=== PATIENT | female | born 1990 | race Two or more races ===

== ENCOUNTER 2017-08-12 00:30 | Emergency (ER) | payer MEDICAID ==
[~2017-08-12] VITALS: Ht 152.4 cm; Wt 54.0 kg
[2017-08-12 01:08] VITALS: BP 104/70
[2017-08-12] MEDS ORDERED: DEBROX15 M1 BOTH EARS (01:27)
[2017-08-12 01:31] VITALS: BP 104/70
--- NOTE | 2017-08-12 05:06 | Emergency Room Report ---
History of Present Illness General Chief Complaint: Earache Source: Patient Present Illness HPI 26-year-old female presents ED complaining of left ear pain x4 days. Patient states she has history of cerumen impaction. Pain is 4/10, throbbing, nonradiating. Denies fevers chills. Denies cough. Denies sore throat. DeniesI sick contacts or recent travel. No other aggravating or leading factors. Denies any other associated symptoms Allergies: Coded Allergies: No Known Allergies (Unverified , 08/12/17) Patient History Past Medical History: none Past Surgical History: none Pertinent Family History: none Social History: Denies: smoking, alcohol use, drug use Last Menstrual Period: a month ago Now: No : 0 Immunizations: UTD Reviewed Nursing Documentation: PMH: Agreed, PSxH: Agreed Nursing Documentation-PMH Past Medical History: No Stated History Review of Systems All Other Systems: negative except mentioned in HPI Physical Exam Vital Signs Date Time Temp Pulse Resp B/P (MAP) Pulse Ox O2 Delivery O2 Flow Rate FiO2 08/12/17 00:48 97.9 75 18 104/70 98 Room Air Sp02 EP Interpretation: reviewed, normal General Appearance: no apparent distress, alert, GCS 15, non-toxic Head: normocephalic Eyes: bilateral eye normal inspection, bilateral eye PERRL ENT: normal pharynx, other - cerumen impaction bilateral ear canals. unable to visualize TM Neck: normal inspection Respiratory: normal inspection Cardiovascular #1: normal inspection Gastrointestinal: normal inspection Rectal: deferred Genitourinary: no CVA tenderness Musculoskeletal: normal inspection Neurologic: alert, oriented x3, responsive, motor strength/tone normal, sensory intact, speech normal Psychiatric: normal inspection Skin: normal inspection Lymphatic: normal inspection Medical Decision Making Diagnostic Impression: Primary Impression: Cerumen impaction Qualified Codes: H61.23 - Impacted cerumen, bilateral ER Course Hospital Course 26-year-old F presents to ED with pain L ear. no fever. Differential diagnoses include: TM perforation, otitis externa, otitis media Clinical course Patient placed on stretcher. After initial history, physical exam reveals a female in no acute distress. There is significant cerumen impaction in bilateral ears. Unable to visualize the TM I offered option for her ear irrigation here. Patient declines. States she will try the drops Diagnosis -cerumen impaction Stable and discharged to home with Rx debrox. Followup with PMD. Return to ED if symptoms recur or worsen Last Vital Signs Date Time Temp Pulse Resp B/P (MAP) Pulse Ox O2 Delivery O2 Flow Rate FiO2 08/12/17 01:31 97.9 75 18 104/70 98 Room Air Status: improved Disposition: HOME, SELF-CARE Condition: Stable Scripts Carbamide Peroxide (DEBROX) 15 Ml Drops 10 DROP BOTH EARS TWICE A DAY for 4 Days, ML 0 Refills Prov: FERNANDO FERRARI M.D. 08/12/17 Referrals: [facility],REFERRING (PCP) Patient Instructions: Cerumen Impaction FERNANDO FERRARI M.D. Aug 12, 2017 05:06
== END 2017-08-12 01:31 | disposition home or self-care (01) ==
LOC: EMR 01:25
DX: H61.23 Impacted cerumen, bilateral (principal)
CPT/HCPCS: 99283

== ENCOUNTER 2017-11-08 18:36 | Emergency (ER) | payer MEDICAID ==
[~2017-11-08] VITALS: Ht 152.4 cm; Wt 56.7 kg
[~2017-11-08 18:36] MED LIST: DEBROX15 M1 BOTH EARS
[2017-11-08 19:30] VITALS: BP 110/64
[2017-11-08] MEDS ORDERED: TYLENOL EXTRA500 MG ORAL (19:36)
--- NOTE | 2017-11-08 19:36 | Emergency Room Report ---
History of Present Illness General Chief Complaint: Sore Throat Source: Patient Present Illness HPI 26 yo female presents to ER complaining of cough and sore throat since yesterday. Patient requesting work note. 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 Reports took NyQuil last night, not taken other medication. Complains of subjective fever and chills Reports sore throat, reports able to eat and drink. Denies hearing loss. Denies nausea, vomiting, diarrhea, cough, abdominal pain, vision changes, neck pain, SIMPSON, dysuria, hematuria, rash. Allergies: Coded Allergies: No Known Allergies (Unverified , 08/12/17) Patient History Past Medical History: see triage record Last Menstrual Period: 10/14/17 Now: No : 0 Reviewed Nursing Documentation: PMH: Agreed; PSxH: Agreed Nursing Documentation-PMH Past Medical History: No Stated History Review of Systems All Other Systems: negative except mentioned in HPI Physical Exam Vital Signs Date Time Temp Pulse Resp B/P (MAP) Pulse Ox O2 Delivery O2 Flow Rate FiO2 11/08/17 18:54 99.2 116 20 110/64 97 Room Air 99.1 Sp02 EP Interpretation: reviewed, normal General Appearance: well appearing, no apparent distress, alert, GCS 15, non- toxic Head: normocephalic, atraumatic Eyes: bilateral eye normal inspection, bilateral eye PERRL ENT: hearing grossly normal, normal pharynx, no angioedema, normal voice, TMs + canals normal, uvula midline, moist mucus membranes, other - no phayrngeal erythema, no tonsillar exudates, no uvular deviation, excessive cerumen bilaterally Neck: full range of motion Respiratory: lungs clear, normal breath sounds, no rhonchi, no respiratory distress, no accessory muscle use, no wheezing, speaking full sentences Cardiovascular #1: regular rate, rhythm, no edema Gastrointestinal: non tender, soft, no mass, non-distended, no guarding, no rebound Genitourinary: no CVA tenderness Musculoskeletal: back normal, digits/nails normal, gait/station normal, normal range of motion, non-tender, no calf tenderness Neurologic: alert, oriented x3, responsive, motor strength/tone normal, sensory intact Psychiatric: mood/affect normal Skin: no rash Lymphatic: no adenopathy Medical Decision Making PA Attestation Dr. Lennon is my supervising Physician whom patient management has been discussed with. Diagnostic Impression: Primary Impression: Sore throat Additional Impressions: Cerumen impaction Influenza-like symptoms ER Course Pt presents to ED c/o sore throat and flu-like symptoms. DDX considered but are not limited to pharyngitis, laryngitis, URI, peritonsillar abscess, tonsillitis. Low suspicion for peritonsillar abscess, no neck stiffness, no hot potato voice , no stridor. Low suspicion for PE per Well's criteria, no hemoptysis, no calf swelling, no SOB, no recent travel or immobilization. VITAL SIGNS are WNL, patient is afebrile. Pulse elevated, will monitor. ORDERS: -Tylenol -Viscous Lidocaine ER COURSE: Patient declined medication in ER. Reports just wants work note. Provided with work note. Salt water gargles. Instructed on Tylenol, fluids, and bed rest. Take Tamiflu, will decrease duration of symptoms. ER precautions, new or worsening of symptoms, chest pain, SOB. Patient reports aware of excessive cerumen, declines need for Rx, states has medication at home. No pain with ear pulling. Patient complains of nausea. Patient declined offer for Zofran, reports wants work note and to be discharged home. Pulse still elevated. Return to ER for chest pain, SOB, vision changes, SIMPSON, abdominal pain. Followup with primary care provider. DISCHARGE: Rx provided for Tylenol for pain and fever symptoms At this time pt is stable for d/c to home. Patient is resting comfortably, in no acute distress, nontoxic appearing, talking without difficulty. Will provide with patient care instructions and any necessary prescriptions. Patient to take medication as instructed. Care plan and follow-up instructions provided. Patient questions asked and answered. Patient instructed to follow-up with primary care provider in 3 - 5 days. ER precautions given. Patient instructed to return to ER immediately for any new or worsening of symptoms. Last Vital Signs Date Time Temp Pulse Resp B/P (MAP) Pulse Ox O2 Delivery O2 Flow Rate FiO2 11/08/17 18:54 99.2 116 20 110/64 97 Room Air 99.1 Disposition: HOME, SELF-CARE Condition: Stable Scripts Acetaminophen* (TYLENOL EXTRA STRENGTH*) 500 Mg Tablet 500 MG ORAL Q8H PRN for Prn Headache/Temp > 101, #30 TAB 0 Refills Prov: Landry Valdez 11/08/17 Patient Instructions: Cerumen Impaction, Influenza, Adult, [id number], Sore Throat Additional Instructions: Followup with primary care provider in 3 -5 days for further treatment and plan. Take medications as directed. Take Tamiflu as instructed. Rest and fluids. Salt Water gargles for throat. Patient questions asked and answered. ER precautions given, patient instructed to return to ER immediately for any new or worsening of symptoms. Landry Valdez Nov 08, 2017 19:36
[2017-11-08] MEDS ORDERED: Lidocaine 2% Visc 15ml soln ORAL ONE (19:45)
[2017-11-08] MEDS ORDERED: Acetaminophen 500mg (ES) tab ORAL ONE (19:45)
[2017-11-08 20:00] VITALS: BP 110/64
== END 2017-11-08 20:00 | disposition home or self-care (01) ==
LOC: EMR 19:30
DX: J02.9 Acute pharyngitis, unspecified (principal); H61.23 Impacted cerumen, bilateral; J11.1 Influenza due to unidentified influenza virus with other respiratory manifestations
CPT/HCPCS: 99283

== ENCOUNTER 2018-10-04 00:17 | Emergency (ER) | payer MEDICAID ==
[~2018-10-04] VITALS: Ht 152.4 cm; Wt 56.7 kg
[~2018-10-04 00:17] MED LIST changes: +TYLENOL EXTRA500 MG ORAL
[2018-10-04] MEDS ORDERED: Ipratropium 0.02% Inh Soln 2.5ml UD HHN ONE (00:45)
[2018-10-04] MEDS ORDERED: Albuterol ud Inhalation HHN ONE (00:45)
[2018-10-04 01:03] VITALS: BP 105/67
--- NOTE | 2018-10-04 01:05 | NUR ---
ED Nurse Note: Patient presents to ED c/o cough 2 days, sorethroat for 4 days, nasal congestion for 4 days. Patient reports 6/10 pain. patient reports nausea. Patient AOx4, VSS, ambulatory with steady gait, no s/s of acute distress noted at this time. patient seen by TOSIND at bedside.
[2018-10-04] MEDS ORDERED: guaiFENesin w/Codeine 5ml Liq ud ORAL STA (01:51)
--- NOTE | 2018-10-04 01:52 | Emergency Room Report ---
History of Present Illness General Chief Complaint: Flu Like Symptoms Source: Patient Present Illness HPI Patient presents with 4 days of cough and sore throat. She has heard herself wheezing. She is used an inhaler in the past but denies a diagnosis of asthma. There is no nausea, vomiting or diarrhea. She is under menstruation at this time and does not believe she is . There is are no rashes. She did receive a flu vaccination denies fevers but has felt chilled. She tried no medication. Allergies: Coded Allergies: No Known Allergies (Unverified , 08/12/17) Patient History Past Medical History: see triage record Social History: Denies: smoking, alcohol use Social History Narrative Scribe Last Menstrual Period: Current on period Now: No Reviewed Nursing Documentation: PMH: Agreed; PSxH: Agreed Nursing Documentation-PMH Past Medical History: No Stated History Review of Systems All Other Systems: negative except mentioned in HPI Physical Exam Vital Signs Date Time Temp Pulse Resp B/P (MAP) Pulse Ox O2 Delivery O2 Flow Rate FiO2 10/04/18 00:22 98.2 69 19 105/67 96 Room Air 10/04/18 00:53 21 Sp02 EP Interpretation: reviewed, normal General Appearance: well appearing, no apparent distress, GCS 15 Head: normocephalic Eyes: bilateral eye normal inspection, bilateral eye PERRL, bilateral eye EOMI ENT: normal voice, moist mucus membranes, pharyngeal erythema, other - No exudates Neck: supple Respiratory: lungs clear, normal breath sounds, wheezing - Posttussive Cardiovascular #1: regular rate, rhythm Cardiovascular #2: 2+ radial (R) Gastrointestinal: normal inspection, normal bowel sounds, non tender, no mass, non-distended Genitourinary: no CVA tenderness Musculoskeletal: back normal, gait/station normal, normal range of motion Neurologic: alert, oriented x3, grossly normal Psychiatric: mood/affect normal Skin: normal inspection, warm/dry Medical Decision Making Diagnostic Impression: Primary Impression: Viral upper respiratory illness Additional Impression: Bronchospasm ER Course Patient presents with sore throat and cough with posttussive wheezing. Differential includes influenza, viral syndrome, bronchospasm, bronchitis amongst others. The exam is against Streptococcus. Antibiotics are not indicated at this time. I discussed with the patient about performing influenza swab she states that she would not take Tamiflu if it were positive. Breathing treatment is indicated. She does agree to taking prednisone. Improved after breathing treatment but still episodes of coughing. Guaifenesin with codeine administered. Patient stable for outpatient observation and treatment. Last Vital Signs Date Time Temp Pulse Resp B/P (MAP) Pulse Ox O2 Delivery O2 Flow Rate FiO2 10/04/18 02:11 98.2 69 18 105/67 100 Room Air 21 Status: improved Disposition: HOME, SELF-CARE Condition: Improved Scripts Prednisone* (PREDNISONE*) 20 Mg Tablet 40 MG ORAL DAILY, #6 TAB Prov: Bulmaro Peterson MD 10/04/18 Guaifenesin/Codeine Phos* (ROBITUSSIN AC*) 118 Ml Liquid 5 ML ORAL Q6H PRN for For Cough, #100 ML 0 Refills Prov: Bulmaro Peterson MD 10/04/18 Albuterol Sulfate* (ALBUTEROL SULFATE MDI*) 8.5 Gm Hfa.aer.ad 2 PUFF INH Q6H, #1 EA 0 Refills Prov: Bulmaro Peterson MD 10/04/18 Referrals: [facility]/,REFERRING (PCP) Bulmaro Peterson MD Oct 04, 2018 01:52
[2018-10-04] MEDS ORDERED: GUAIFENESIN-CO118 M1 ORAL (01:57)
[2018-10-04] MEDS ORDERED: ALBUTEROL SULF8.5 GM INH (01:57)
[2018-10-04] MEDS ORDERED: PREDNISONE20 MG ORAL (01:57)
[2018-10-04 02:11] VITALS: BP 105/67
--- NOTE | 2018-10-04 02:11 | NUR ---
ED Nurse Note: Patient cleared for discharge by ERMKiah. Patient AOx4, VSS, ambulatory with steady gait, no s/s of acute distress noted at this time. patient provided with discharge instructions and medication prescriptions. patient verbalized understanding. patient ID band removed. Patient instructed to follow up with PCP in 5 days. patient has friend to drive her home. patient took all personal belongings with her.
== END 2018-10-04 02:13 | disposition home or self-care (01) ==
LOC: EMR 00:39
DX: J06.9 Acute upper respiratory infection, unspecified (principal); B34.9 Viral infection, unspecified; J98.01 Acute bronchospasm
CPT/HCPCS: 94640; 94664; 99284; J7512

== ENCOUNTER 2018-11-25 22:52 | Emergency (ER) | payer MEDICAID ==
[~2018-11-25] VITALS: Ht 152.4 cm; Wt 56.7 kg
[~2018-11-25 22:52] MED LIST changes: +ALBUTEROL SULF8.5 GM INH; +GUAIFENESIN-CO118 M1 ORAL; +PREDNISONE20 MG ORAL
[2018-11-25] MEDS ORDERED: NKM (23:00)
[2018-11-25 23:10] VITALS: BP 125/85
--- NOTE | 2018-11-25 23:10 | NUR ---
ED Nurse Note: pt walked in c/o sorethroat x 1 wk, pt states she recently had cough, congestion and fever but denies fever at this time. pt aA&ox4, gcs=15, skin warm and dry, resp even and unlabored on RA, -n/v/d at this time, will cont monitor.
[2018-11-25] MEDS ORDERED: ZITHROMAX250 MG ORAL (23:15)
--- NOTE | 2018-11-25 23:16 | Emergency Room Report ---
History of Present Illness General Chief Complaint: Sore Throat Source: Patient Present Illness [facility] This is a 27-year-old female with no past medical history. She presents with chief complaint of sore throat. She also has on of fever for a week. Most of the pain is on the right side. She has URI for about a week now. Pain is worse with swallowing and drinking. No swelling. No nausea no vomiting. Pain is 8 out of 10. Allergies: Coded Allergies: No Known Allergies (Unverified , 08/12/17) Patient History Past Medical History: see triage record, old chart reviewed Past Surgical History: none Pertinent Family History: none Social History: Denies: smoking Last Menstrual Period: 11/01/2018 Now: No Immunizations: other Reviewed Nursing Documentation: PMH: Agreed; PSxH: Agreed Nursing Documentation-PMH Past Medical History: No Stated History Review of Systems Eye: Denies: eye pain, blurred vision ENT: Reports: throat pain; Denies: ear pain, nose congestion, throat swelling Respiratory: Denies: cough, shortness of breath Cardiovascular: Denies: chest pain, palpitations Gastrointestinal: Denies: abdominal pain, diarrhea, nausea, vomiting Musculoskeletal: Denies: back pain, joint pain Skin: Denies: rash Neurological: Denies: headache, numbness Endocrine: Denies: increased thirst, increased urine Hematologic/Lymphatic: Denies: easy bruising All Other Systems: negative except mentioned in HPI Physical Exam Vital Signs Date Time Temp Pulse Resp B/P (MAP) Pulse Ox O2 Delivery O2 Flow Rate FiO2 11/25/18 22:58 97.9 61 16 125/85 99 Room Air vitals normal Sp02 EP Interpretation: reviewed, normal General Appearance: well appearing, no apparent distress, alert Head: normocephalic, atraumatic Eyes: bilateral eye PERRL, bilateral eye EOMI ENT: hearing grossly normal, pharyngeal erythema Neck: full range of motion, supple, no meningismus Respiratory: chest non-tender, lungs clear, normal breath sounds Cardiovascular #1: regular rate, rhythm, no murmur Gastrointestinal: normal bowel sounds, non tender, no mass, no organomegaly, no bruit, non-distended Musculoskeletal: back normal, gait/station normal, normal range of motion Psychiatric: mood/affect normal Skin: warm/dry Medical Decision Making Diagnostic Impression: Primary Impression: Pharyngitis, acute Qualified Codes: J02.9 - Acute pharyngitis, unspecified ER Course Patient with acute pharyngitis. Most likely viral but symptoms been ongoing for over a week and with fever, we'll put on antibiotics. No evidence of any peritonsillar abscess or retropharyngeal abscess. No Evidence of Tod angina. We'll discharge home. Last Vital Signs Date Time Temp Pulse Resp B/P (MAP) Pulse Ox O2 Delivery O2 Flow Rate FiO2 11/25/18 23:10 97.9 61 16 125/85 99 Room Air Status: unchanged Disposition: HOME, SELF-CARE Condition: Stable Scripts Azithromycin* (ZITHROMAX*) 250 Mg Tablet 250 MG ORAL DAILY, #6 TAB 0 Refills Take two tables once daily for 1 day, then one tablet once daily for 4 days. Prov: Isacc Rivera MD 11/25/18 Patient Instructions: Sore Throat Additional Instructions: Follow-up with your doctor in 7 days. Increase fluids. Return if worse. Isacc Rivera MD Nov 25, 2018 23:16
[2018-11-25 23:31] VITALS: BP 125/85
--- NOTE | 2018-11-25 23:31 | NUR ---
ED Nurse Note: pt cleared to be d/c per ERMD, pt discharge and aftercare instruction provided w/ prescription, pt education done via discussion and handout, pt advised to follow up with pcp or return if changes in condition, pt verbalized understanding and agrees with plan, vss, ambulatory w/ steady gait, left w/ all belongings, ID band removed.
== END 2018-11-25 23:32 | disposition home or self-care (01) ==
LOC: EMR 23:15
DX: J02.9 Acute pharyngitis, unspecified (principal)
CPT/HCPCS: 99282

== ENCOUNTER 2019-12-22 04:09 | Emergency (ER) | payer MEDICAID ==
[~2019-12-22] VITALS: Ht 152.4 cm; Wt 52.2 kg
[~2019-12-22 04:09] MED LIST changes: +NKM; +ZITHROMAX250 MG ORAL
--- NOTE | 2019-12-22 04:26 | NUR ---
ED Nurse Note: pt presents to ED c/o palpitations after she consumed 2 THC edibles of unk dose and drank a small amount of alcohol at around 0000. pt states that she started feeling the palpitations 2 hours after eating the edible. this was her first time taking them, she denies vomiting but reports feeling nauseous. pt appears to be anxious, shaking and noted to have tachy HR of 140's
[2019-12-22 04:27] VITALS: BP 127/71
[2019-12-22] MEDS ORDERED: LORazepam Inj 2mg/ml 1ml IV ONE (04:30)
[2019-12-22 04:49] LABS: EOSINOPHILS % (AUTO) 1.1 % (0.0-3.0); HEMATOCRIT 37.3 % (37.0-47.0); HEMOGLOBIN 13.4 G/DL (12.0-16.0); LYMPHOCYTES % (AUTO) 28.2 % (20.0-45.0); MEAN CORPUSCULAR VOLUME 89 FL (80-99); MONOCYTES % (AUTO) 5.9 % (1.0-10.0); NEUTROPHILS % (AUTO) 63.9 % (45.0-75.0); PLATELET COUNT 237 K/UL (150-450); RED BLOOD COUNT 4.18 M/UL (4.20-5.40); RED CELL DISTRIBUTION WIDTH 10.7 % (11.6-14.8); WHITE BLOOD COUNT 7.4 K/UL (4.8-10.8)
[2019-12-22 04:50] LABS: APPEARANCE,URINE CLEAR; BILIRUBIN, URINE NEGATIVE (NEGATIVE); COLOR,URINE PALE YELLOW; GLUCOSE, URINE (UA) NEGATIVE (NEGATIVE); KETONES,URINE NEGATIVE (NEGATIVE); LEUKOCYTE ESTERASE ,URINE NEGATIVE (NEGATIVE); NITRITE,URINE NEGATIVE (NEGATIVE); PH,URINE 6 (4.5-8.0); PROTEIN,URINE NEGATIVE (NEGATIVE); UROBILINOGEN,URINE NORMAL MG/DL (0.0-1.0)
[2019-12-22 05:05] LABS: ALANINE AMINOTRANSFERASE 25 U/L (12-78); ALBUMIN 4.4 G/DL (3.4-5.0); ALBUMIN/GLOBULIN RATIO 1.2 (1.0-2.7); ALKALINE PHOSPHATASE 87 U/L (46-116); ASPARTATE AMINO TRANSFERASE 18 U/L (15-37); BILIRUBIN,TOTAL 0.6 MG/DL (0.2-1.0); BLOOD UREA NITROGEN 10 mg/dL (7-18); CALCIUM 8.6 MG/DL (8.5-10.1); CARBON DIOXIDE 25 MMOL/L (21-32); CREATININE 0.8 MG/DL (0.55-1.30)
--- NOTE | 2019-12-22 05:13 | NUR ---
HAND-OFF: Report given to ELEANOR Ambriz
--- NOTE | 2019-12-22 05:13 | Emergency Room Report ---
History of Present Illness General Chief Complaint: Substance Abuse Source: Patient Present Illness HPI 29-year-old female presents ED for evaluation. States that last night she used an edible and drank some alcohol. States she woke up with her heart racing. Feels anxious. Denies chest pain or shortness of breath. Does have some anxiety but does not take medication. Denies SI or HI. Denies abdominal pain nausea or vomiting. No other aggravating relieving factors. Denies any other associated symptoms Allergies: Coded Allergies: No Known Allergies (Unverified , 08/12/17) COVID-19 Screening Contact w/high risk pt: No Recent Travel to affected area: No Experienced COVID-19 symptoms?: No COVID-19 Testing performed FREIGHT LOADER: No Patient History Past Medical History: psych hx Past Surgical History: none Pertinent Family History: none Social History: Reports: drug use; Denies: smoking, alcohol use Now: No Immunizations: UTD Reviewed Nursing Documentation: PMH: Agreed; PSxH: Agreed Review of Systems All Other Systems: negative except mentioned in HPI Physical Exam Vital Signs Date Time Temp Pulse Resp B/P (MAP) Pulse Ox O2 Delivery O2 Flow Rate FiO2 12/22/19 04:13 97.9 145 22 127/71 (89) 96 Room Air Sp02 EP Interpretation: reviewed, normal General Appearance: no apparent distress, alert, GCS 15, non-toxic Head: normocephalic, atraumatic Eyes: bilateral eye normal inspection, bilateral eye PERRL ENT: hearing grossly normal, normal pharynx, no angioedema, normal voice Neck: full range of motion, supple/symm/no masses Respiratory: chest non-tender, lungs clear, normal breath sounds, speaking full sentences Cardiovascular #1: no edema, tachycardia Cardiovascular #2: 2+ carotid (R), 2+ carotid (L), 2+ radial (R), 2+ radial (L) , 2+ dorsalis pedis (R), 2+ dorsalis pedis (L) Gastrointestinal: normal bowel sounds, non tender, soft, non-distended, no guarding, no rebound Rectal: deferred Genitourinary: normal inspection, no CVA tenderness Musculoskeletal: back normal, normal range of motion, gait/station normal, non- tender Neurologic: alert, motor strength/tone normal, oriented x3, sensory intact, responsive, speech normal Psychiatric: judgement/insight normal, memory normal, no suicidal/homicidal ideation, no delusions, anxious Reflexes: 3+ bicep (R), 3+ bicep (L), 3+ tricep (R), 3+ tricep (L), 3+ knee (R) , 3+ knee (L) Lymphatic: no adenopathy Medical Decision Making Diagnostic Impression: Primary Impression: Marijuana intoxication Qualified Codes: F12.929 - Cannabis use, unspecified with intoxication, unspecified ER Course Hospital Course 29-year-old F presents ED complaining of palpitations, feeling anxious, s/p marijuana use Differential diagnoses include: afib, Vtach, SVT, anxiety, dehydration Clinical course Patient placed on stretcher. After initial history and physical I ordered labs , EKG, chest x-ray, IVFs, ativan. labs reviewed- all electrolytes normal, troponins negative, no leukocytosis, hemoglobin/hematocrit stable, Utox + THC EKG - sinus tachycardia no acute ischemic changes interpreted by me Upon reassessment patient states symptoms have improved. Tachycardia resolved. Patient feels better. Discussed findings with patient. Safe for discharge close outpatient follow-up. States she has a PMD I. I feel this is a highly complex case requiring extensive working including EKG/Rhythm strip, Xray/CT/US, Blood/urine lab work, repeat exams while in ED, and administration of strong opiates/narcotics for pain control, admission to hospital or close patient follow up. Diagnosis - marijuana intoxication Stable and discharged to home. Instructed to followup with PMD. Return to ED if symptoms recur or worsen Labs Test 12/22/19 04:44 White Blood Count 7.4 K/UL (4.8-10.8) Red Blood Count 4.18 M/UL (4.20-5.40) Hemoglobin 13.4 G/DL (12.0-16.0) Hematocrit 37.3 % (37.0-47.0) Mean Corpuscular Volume 89 FL (80-99) Mean Corpuscular Hemoglobin 32.1 PG (27.0-31.0) Mean Corpuscular Hemoglobin Concent 35.9 G/DL (32.0-36.0) Red Cell Distribution Width 10.7 % (11.6-14.8) Platelet Count 237 K/UL (150-450) Mean Platelet Volume 6.1 FL (6.5-10.1) Neutrophils (%) (Auto) 63.9 % (45.0-75.0) Lymphocytes (%) (Auto) 28.2 % (20.0-45.0) Monocytes (%) (Auto) 5.9 % (1.0-10.0) Eosinophils (%) (Auto) 1.1 % (0.0-3.0) Basophils (%) (Auto) 1.0 % (0.0-2.0) Urine Color Pale yellow Urine Appearance Clear Urine pH 6 (4.5-8.0) Urine Specific [place] 1.010 (1.005-1.035) Urine Protein Negative (NEGATIVE) Urine Glucose (UA) Negative (NEGATIVE) Urine Ketones Negative (NEGATIVE) Urine Blood 3+ (NEGATIVE) Urine Nitrite Negative (NEGATIVE) Urine Bilirubin Negative (NEGATIVE) Urine Urobilinogen Normal MG/DL (0.0-1.0) Urine Leukocyte Esterase Negative (NEGATIVE) Urine RBC 2-4 /HPF (0 - 2) Urine WBC 0-2 /HPF (0 - 2) Urine Squamous Epithelial Cells Few /LPF (NONE/OCC) Urine Calcium Carbonate Crystals None /LPF (NONE) Urine Bacteria None /HPF (NONE) Urine HCG, Qualitative Negative (NEGATIVE) Sodium Level 139 MMOL/L (136-145) Potassium Level 3.5 MMOL/L (3.5-5.1) Chloride Level 100 MMOL/L (98-107) Carbon Dioxide Level 25 MMOL/L (21-32) Blood Urea Nitrogen 10 mg/dL (7-18) Creatinine 0.8 MG/DL (0.55-1.30) Estimat Glomerular Filtration Rate > 60 mL/min (>60) Glucose Level 142 MG/DL (74-106) Calcium Level 8.6 MG/DL (8.5-10.1) Total Bilirubin 0.6 MG/DL (0.2-1.0) Aspartate Amino Transf (AST/SGOT) 18 U/L (15-37) Alanine Aminotransferase (ALT/SGPT) 25 U/L (12-78) Alkaline Phosphatase 87 U/L (46-116) Total Protein 8.2 G/DL (6.4-8.2) Albumin 4.4 G/DL (3.4-5.0) Globulin 3.8 g/dL Albumin/Globulin Ratio 1.2 (1.0-2.7) Salicylates Level < 0.2 ug/mL (2.8-20) Urine Opiates Screen Negative (NEGATIVE) Acetaminophen Level < 2 MCG/ML (10-30) Urine Barbiturates Screen Negative (NEGATIVE) Phencyclidine (PCP) Screen Negative (NEGATIVE) Urine Amphetamines Screen Negative (NEGATIVE) Urine Benzodiazepines Screen Negative (NEGATIVE) Urine Cocaine Screen Negative (NEGATIVE) Urine Marijuana (THC) Screen Positive (NEGATIVE) Serum Alcohol < 3 mg/dL EKG Diagnostic Results Rate: tachycardiac Rhythm: NSR ST Segments: no acute changes ASA given to the pt in ED: No Rhythm Strip Diag. Results EP Interpretation: yes Rhythm: NSR, no PVC's, no ectopy Last Vital Signs Date Time Temp Pulse Resp B/P (MAP) Pulse Ox O2 Delivery O2 Flow Rate FiO2 12/22/19 04:27 142 22 127/71 96 Room Air 12/22/19 04:13 97.9 Status: improved Disposition: HOME, SELF-CARE Condition: Stable Referrals: [facility],REFERRING (PCP) Perico Haque MD December 22, 2019 05:13
[2019-12-22 05:19] LABS: CHLORIDE 100 MMOL/L (98-107); POTASSIUM 3.5 MMOL/L (3.5-5.1); SODIUM 139 MMOL/L (136-145)
[2019-12-22 05:50] VITALS: BP 122/78
--- NOTE | 2019-12-22 05:50 | NUR ---
ER DISCHARGE NOTE: Patient is cleared to be discharged per ERMD, pt is aox4, on room air, with stable vital signs. pt was given dc instructions, pt was able to verbalize understanding, pt id band and iv site removed without complications. pt is able to ambulate with steady gait. pt took all belongings. pt assisted into sister's car to be taken home.
== END 2019-12-22 05:55 | disposition home or self-care (01) ==
LOC: EMR 04:21
DX: F12.929 Cannabis use, unspecified with intoxication, unspecified (principal); F41.9 Anxiety disorder, unspecified; R00.0 Tachycardia, unspecified
CPT/HCPCS: 36415; 80053; 80307; 81003; 81025; 85025; 93005; 96361; 96374; G0480; G0481; J7030; Z7502; 99284